=== PATIENT | female | born 1995 | race Two or more races ===

== ENCOUNTER 2022-08-17 22:02 | Emergency (ER) | payer OTHER ==
[2022-08-17 23:47] LABS: #Eosinphils 0.2 10x3/uL (0.0-0.5); #Monocytes 0.4 10x3/uL (0.0-1.1); #Neutrophils 5.6 10x3/uL (1.5-8.4); %Basophils 0.4 % (0.0-2.0); %Lymphocytes 9.5 % (18.0-47.0); %Monocytes 5.9 % (0.0-10.0); %Neutrophils 80.8 % (40.0-75.0); Hemoglobin 12.9 g/dL (12.0-15.5); Mean Corpuscular HGB CONC 34.6 g/dL (32.0-36.0); Mean Corpuscular Hemoglobin 29.5 pg (27.0-33.0); Mean Corpuscular Volume 85.2 fl (81.6-98.3); Mean Platelet Volume 9.5 fl (7.4-10.4); Platelet Count 165 10x3/uL (150-450); RBC Distribution Width 13.4 % (11.5-14.5); Red Blood Cell (RBC) Count 4.38 10x6/uL (3.90-5.03)
[2022-08-17 23:53] LABS: ALT (SGPT) 16 U/L (8-55); AST (SGOT) 20 U/L (5-34); Albumin 4.5 g/dL (3.5-5.0); Alkaline Phosphatase 47 U/L (40-110); Anion Gap 12 mmol/L (10-20); BUN (Urea Nitrogen) 10 mg/dL (7.0-18.7); Bilirubin, Total 0.9 mg/dL (0.2-1.2); Calc. Creatinine Clearance 0 mL/min (70-130); Calcium 9.5 mg/dL (7.8-10.44); Carbon Dioxide 20 mmol/L (22-29); Chloride 108 mmol/L (98-107); Estimated GFR 124; Globulin 2.9 g/dL (2.4-3.5); Glucose 111 mg/dL (70-105); Potassium 3.6 mmol/L (3.5-5.1); Protein, Total 7.4 g/dL (6.0-8.3); Sodium 136 mmol/L (136-145)
[2022-08-18 00:40] LABS: Bilirubin Neg (Negative); Blood, Urine 250 (Negative); Clarity Cloudy (Clear); Glucose, Urine (Dipstick) Normal (Negative); Ketone, Urine Negative (Negative); Leukocyte 25 (Negative); Nitrite Negative (Negative); Protein, Urine (Dipstick) 30 mg/dl (Neg-Trace); Specific Gravity, Urine 1.015 (1.005-1.030)
[2022-08-18 00:51] LABS: Bacteria/HPF 1+ HPF (None Seen); RBC/HPF Greater than 50 HPF (0-3); Squamous Epithelial 0-3 HPF (0-3)
[2022-08-18] MEDS ORDERED: Cephalexin 250 MG CAP ONE ×2 (01:51→01:52)
== END 2022-08-18 03:28 | disposition home or self-care (01) ==
LOC: CSHERS 22:02
DX: O20.0 Threatened abortion (principal); O23.41 Unspecified infection of urinary tract in pregnancy, first trimester; Z3A.11 11 weeks gestation of pregnancy
CPT/HCPCS: 76856; 80053; 81003; 81015; 84702; 85025; 86850; 86900; 86901; 87086

== ENCOUNTER 2022-08-27 17:19 | Emergency (ER) | payer OTHER ==
[2022-08-27 18:05] LABS: #Eosinphils 0.1 10x3/uL (0.0-0.5); #Monocytes 0.3 10x3/uL (0.0-1.1); #Neutrophils 5.3 10x3/uL (1.5-8.4); %Basophils 0.3 % (0.0-2.0); %Eosinophils 2.2 % (0.0-6.0); %Lymphocytes 7.9 % (18.0-47.0); %Monocytes 5.1 % (0.0-10.0); %Neutrophils 84.2 % (40.0-75.0); Hemoglobin 12.7 g/dL (12.0-15.5); Mean Corpuscular Hemoglobin 29.9 pg (27.0-33.0); Mean Corpuscular Volume 85.4 fl (81.6-98.3); Mean Platelet Volume 9.5 fl (7.4-10.4); Platelet Count 159 10x3/uL (150-450); RBC Distribution Width 13.5 % (11.5-14.5); Red Blood Cell (RBC) Count 4.25 10x6/uL (3.90-5.03); White Blood Cell (WBC) Count 6.3 10x3/uL (3.5-10.5)
[2022-08-27 18:23] LABS: ALT (SGPT) 14 U/L (8-55); AST (SGOT) 18 U/L (5-34); Albumin 4.5 g/dL (3.5-5.0); Alkaline Phosphatase 41 U/L (40-110); Anion Gap 13 mmol/L (10-20); BUN (Urea Nitrogen) 9 mg/dL (7.0-18.7); Bilirubin, Total 0.7 mg/dL (0.2-1.2); Calc. Creatinine Clearance 0 mL/min (70-130); Calcium 9.5 mg/dL (7.8-10.44); Carbon Dioxide 20 mmol/L (22-29); Chloride 107 mmol/L (98-107); Estimated GFR 125; Globulin 3.1 g/dL (2.4-3.5); Glucose 83 mg/dL (70-105); Potassium 3.6 mmol/L (3.5-5.1); Protein, Total 7.6 g/dL (6.0-8.3); Sodium 136 mmol/L (136-145)
[2022-08-27 18:29] LABS: Bilirubin Neg (Negative); Blood, Urine 250 (Negative); Clarity Clear (Clear); Glucose, Urine (Dipstick) Normal (Negative); Ketone, Urine Negative (Negative); Leukocyte Negative (Negative); Nitrite Negative (Negative); Protein, Urine (Dipstick) Negative (Neg-Trace); Specific Gravity, Urine 1.015 (1.005-1.030); Urobilinogen Normal mg/dL (Less than 2)
[2022-08-27 18:38] LABS: Bacteria/HPF Rare-Few HPF (None Seen); RBC/HPF 0-3 HPF (0-3); Squamous Epithelial 0-3 HPF (0-3); WBC/HPF 0-3 HPF (0-3)
== END 2022-08-27 20:00 | disposition home or self-care (01) ==
LOC: CSHERS 17:19
DX: O20.9 Hemorrhage in early pregnancy, unspecified (principal); Z3A.12 12 weeks gestation of pregnancy
CPT/HCPCS: 76815; 80053; 81003; 81015; 84702; 85025; 86900; 86901

== ENCOUNTER 2022-10-22 20:31 | Day surgery (SDC) | payer OTHER ==
[2022-10-22] MEDS ORDERED: hydrALAZINE 20 MG/ML VIAL SLOW IVP PRN (21:05)
== END 2022-10-22 21:40 | disposition home or self-care (01) ==
LOC: CSHLD/OP 20:31
PROVIDERS: ATTEND Obstetrics & Gynecology
DX: O46.92 Antepartum hemorrhage, unspecified, second trimester (principal); Z79.82 Long term (current) use of aspirin; Z79.899 Other long term (current) drug therapy; Z88.8 Allergy status to other drugs, medicaments and biological substances; Z3A.20 20 weeks gestation of pregnancy
CPT/HCPCS: 99283

== ENCOUNTER 2022-10-25 11:29 | Day surgery (SDC) | payer OTHER ==
[2022-10-25 11:59] VITALS: BMI 29.2
[2022-10-25 15:28] LABS: #Eosinphils 0.1 10x3/uL (0.0-0.5); #Monocytes 0.4 10x3/uL (0.0-1.1); #Neutrophils 6.8 10x3/uL (1.5-8.4); %Basophils 0.3 % (0.0-2.0); %Eosinophils 1.5 % (0.0-6.0); %Lymphocytes 5.2 % (18.0-47.0); %Monocytes 4.9 % (0.0-10.0); %Neutrophils 87.6 % (40.0-75.0); Hemoglobin 13.6 g/dL (12.0-15.5); Mean Corpuscular HGB CONC 33.3 g/dL (32.0-36.0); Mean Corpuscular Hemoglobin 29.6 pg (27.0-33.0); Mean Corpuscular Volume 88.9 fl (81.6-98.3); Mean Platelet Volume 9.7 fl (7.4-10.4); Platelet Count 169 10x3/uL (150-450); RBC Distribution Width 13.9 % (11.5-14.5); Red Blood Cell (RBC) Count 4.59 10x6/uL (3.90-5.03); White Blood Cell (WBC) Count 7.8 10x3/uL (3.5-10.5)
== END 2022-10-25 16:09 | disposition home or self-care (01) ==
LOC: CSHLD/OP 11:29
PROVIDERS: ATTEND Obstetrics & Gynecology
DX: O46.92 Antepartum hemorrhage, unspecified, second trimester (principal); Z88.8 Allergy status to other drugs, medicaments and biological substances; Z79.899 Other long term (current) drug therapy; Z3A.20 20 weeks gestation of pregnancy
CPT/HCPCS: 36415; 76815; 85025; 99283

== ENCOUNTER 2022-10-31 05:48 | Inpatient (IN) | payer OTHER ==
[2022-10-31 06:13] VITALS: BMI 28.8
[2022-10-31] MEDS ORDERED: hydrALAZINE 20 MG/ML VIAL SLOW IVP PRN ×2 (06:16→12:12)
[2022-10-31 06:25] LABS: Fetal Membranes Rupture RUPTURE DETECTED (No Rupture)
[2022-10-31] MEDS ORDERED: Ondansetron PF 4 MG/2 ML Vial IVP PRN (12:12)
[2022-10-31] MEDS ORDERED: Acetaminophen 500 MG TAB PO PRN (12:12)
[2022-10-31] MEDS ORDERED: Promethazine HCl 25 MG/ML VIAL IM PRN (12:12)
[2022-10-31] MEDS ORDERED: Butorphanol Tartrate 1 MG/ML VIAL SLOW IVP PRN (12:12)
[2022-10-31] MEDS ORDERED: Zolpidem Tartrate 5 MG TAB PO PRN (12:12)
[2022-10-31 13:46] LABS: Hemoglobin 13.3 g/dL (12.0-15.5); Mean Corpuscular HGB CONC 34.9 g/dL (32.0-36.0); Mean Corpuscular Hemoglobin 29.6 pg (27.0-33.0); Mean Corpuscular Volume 84.9 fl (81.6-98.3); Mean Platelet Volume 9.9 fl (7.4-10.4); Platelet Count 185 10x3/uL (150-450); RBC Distribution Width 13.9 % (11.5-14.5); Red Blood Cell (RBC) Count 4.49 10x6/uL (3.90-5.03); White Blood Cell (WBC) Count 8.3 10x3/uL (3.5-10.5)
[2022-10-31] MEDS: Prenatal Vitamin 1 TAB PO SCH (19:26)
[2022-11-01] MEDS: Prenatal Vitamin 1 TAB PO SCH (09:26)
[2022-11-01] MEDS: Aspirin 81 mg Enteric Coated Tablet PO SCH (09:50)
[2022-11-02] MEDS: Prenatal Vitamin 1 TAB PO SCH (08:26)
[2022-11-02] MEDS: Aspirin 81 mg Enteric Coated Tablet PO SCH (08:26)
[2022-11-03] MEDS: Prenatal Vitamin 1 TAB PO SCH (08:13)
[2022-11-03] MEDS: Aspirin 81 mg Enteric Coated Tablet PO SCH (08:16)
[2022-11-04] MEDS: Aspirin 81 mg Enteric Coated Tablet PO SCH (08:31)
[2022-11-04] MEDS: Prenatal Vitamin 1 TAB PO SCH (08:31)
[2022-11-05] MEDS: Prenatal Vitamin 1 TAB PO SCH (09:13)
[2022-11-05] MEDS: Aspirin 81 mg Enteric Coated Tablet PO SCH (09:14)
[2022-11-06] MEDS: Aspirin 81 mg Enteric Coated Tablet PO SCH (09:07)
[2022-11-06] MEDS: Prenatal Vitamin 1 TAB PO SCH (09:07)
[2022-11-07] MEDS: Prenatal Vitamin 1 TAB PO SCH (08:30)
[2022-11-07] MEDS: Aspirin 81 mg Enteric Coated Tablet PO SCH (08:30)
[2022-11-08] MEDS: Aspirin 81 mg Enteric Coated Tablet PO SCH (08:30)
[2022-11-08] MEDS: Prenatal Vitamin 1 TAB PO SCH (08:30)
[2022-11-08] MEDS: Betamet Acet/Betamet Na Ph 30 MG/5 ML VIAL IM SCH (23:53)
[2022-11-09] MEDS ORDERED: Ampicillin 2 GM in Sodium Chloride 0.9% 100 ML IVPB SCH (08:30)
[2022-11-09] MEDS: Prenatal Vitamin 1 TAB PO SCH (09:40)
[2022-11-09] MEDS: Aspirin 81 mg Enteric Coated Tablet PO SCH (09:40)
[2022-11-10] MEDS: Betamet Acet/Betamet Na Ph 30 MG/5 ML VIAL IM SCH (00:04)
[2022-11-10] MEDS ORDERED: AMPicillin 2,000 MG in Syringe 0 ML SLOW IVP SCH (06:00)
[2022-11-10] MEDS ORDERED: ERYTHROMYCIN IVPB SCH (06:00)
[2022-11-10] MEDS ORDERED: Ampicillin 2 GM in Sodium Chloride 0.9% 100 ML IVPB SCH (06:00)
[2022-11-10] MEDS ORDERED: Erythromycin 250 MG in Sodium Chloride 0.9% 250 ML 250 ML IVPB SCH (06:00)
[2022-11-10] MEDS: Aspirin 81 mg Enteric Coated Tablet PO SCH (07:35)
[2022-11-10] MEDS: Prenatal Vitamin 1 TAB PO SCH (07:35)
[2022-11-10 07:51] VITALS: BP 112/61; TEMP 97.8
== END 2022-11-10 12:13 | disposition short-term general hospital (02) | DRG 831 ==
LOC: CSHLD/OP 05:48 → CSHANTE 10:34 → OBSVTOIN 11-02 11:47
PROVIDERS: ADMIT Obstetrics & Gynecology; ATTEND Obstetrics & Gynecology
DX: O42.012 Preterm premature rupture of membranes, onset of labor within 24 hours of rupture, second trimester (principal); O44.12 Complete placenta previa with hemorrhage, second trimester; O32.1XX0 Maternal care for breech presentation, not applicable or unspecified; Z20.822 Contact with and (suspected) exposure to COVID-19; O34.211 Maternal care for low transverse scar from previous cesarean delivery; Z79.899 Other long term (current) drug therapy; Z88.8 Allergy status to other drugs, medicaments and biological substances; Z3A.21 21 weeks gestation of pregnancy
CPT/HCPCS: 36415; 76815; 76816; 84112; 85027; 86850; 86900; 86901; 99285; G0378; J0290; J0702; J1364; J3490; J7050; U0003; U0005